=== PATIENT | female | born 1975 | race Caucasian/White ===

== ENCOUNTER 2016-04-22 05:50 | Emergency (ER) | payer OTHER ==
[~2016-04-22] VITALS: Ht 167.6 cm; Wt 63.5 kg
[~2016-04-22 05:50] MED LIST: [UNRECOGNIZED DRUG - CODE] PO
[2016-04-22 05:53] VITALS: BP 102/84
[2016-04-22] MEDS ORDERED: ATI.5 PO (06:01)
--- NOTE | 2016-04-22 06:06 | NUR ---
PT TAKEN TO BED 2
--- NOTE | 2016-04-22 06:11 | NUR ---
40Y F BIB SELF C/O SHARP AB PAIN X 2 DAYS WITH DIARRHEA AND VOMITING. PT STATES SHE ALSO HAS A HEADACHE 6/10 PAIN .; SKIN IS PINK/WARM/DRY; AAOX4 WITH EVEN AND STEADY GAIT; LUNGS CLEAR BL; HR EVEN AND REGULAR; PT DENIES ANY FEVER, CP, SOB, OR COUGH AT THIS TIME; PATIENT STATES PAIN OF 6/10 AT THIS TIME; VSS; PATIENT POSITIONED FOR COMFORT; HOB ELEVATED; BEDRAILS UP X2; BED DOWN. ER MD MADE AWARE OF PT STATUS. HX: HYPOTHYROIDISM ALLERGIC - PCN AND SULFA
[2016-04-22] MEDS ORDERED: KETOROLAC 30 MG/ML VIAL IVP ONE (06:40)
[2016-04-22] MEDS ORDERED: NACL 0.9% 1,000 ML IV ONE ×2 (06:40→08:00)
[2016-04-22 06:54] LABS: BASOPHILS # (AUTO) 0.2 K/uL (0.00-0.22); BASOPHILS % (AUTO) 2.9 % (0.0-2.0); EOSINOPHILS # (AUTO) 0.1 K/uL (0-0.4); EOSINOPHILS % (AUTO) 1.7 % (0.0-4.0); HEMATOCRIT 39.8 % (36-48); HEMOGLOBIN 13.5 g/dL (12.0-16.0); LYMPHOCYTES # (AUTO) 1.6 K/uL (2.5-16.5); LYMPHOCYTES % (AUTO) 23.7 % (20.5-51.1); MEAN CORPUSCULAR HEMOGLOBIN 33 pg (27-31); MEAN CORPUSCULAR HGB CONC 34 g/dL (33-37); MEAN CORPUSCULAR VOLUME 96 fL (80-94); MONOCYTES # (AUTO) 0.6 K/uL (0.8-1.0); MONOCYTES % (AUTO) 8.7 % (1.7-9.3); NEUTROPHILS # (AUTO) 4.1 K/uL (1.8-7.7); PLATELET COUNT (AUTO) 282 K/uL (140-450); RED BLOOD CELL COUNT(AUTO) 4.15 MIL/uL (4.20-5.40); WHITE BLOOD COUNT (AUTO) 6.6 K/uL (4.8-10.8)
[2016-04-22 06:57] LABS: APPEARANCE,URINE CLOUDY (CLEAR); BILIRUBIN,URINE NEGATIVE (NEGATIVE); BLOOD, URINE 2+ (NEGATIVE); COLOR,URINE YELLOW (YELLOW); LEUKOCYTE ESTERASE ,URINE NEGATIVE (NEGATIVE); NITRITE, URINE NEGATIVE (NEGATIVE); PROTEIN,URINE 2+ (NEGATIVE); UGLUCOSE NEGATIVE (NEGATIVE); UROBILINOGEN,URINE 0.2 EU/dL (0.2 - 1)
--- NOTE | 2016-04-22 07:05 | NUR ---
Dr. Davenport evaluating patient at bedside.
[2016-04-22 07:06] LABS: ANION GAP 11.2 (8-16); CALCIUM 7.7 mg/dL (8.5-10.1); CARBON DIOXIDE 27.2 mmol/L (21-32); CREATININE 0.7 mg/dL (0.6-1.3); POTASSIUM 4.4 mmol/L (3.5-5.1)
--- NOTE | 2016-04-22 07:11 | NUR ---
Pt report given to DANIKA GUEVAAR. Transfer of care at this time.
--- NOTE | 2016-04-22 07:11 | NUR ---
NACL 0.9% 1000ML START 644 RIGHT AC RATE: 999ML/HR END 710; 100ML INFUSED, 900ML REMAINING TO CONTINUE INFUSE WITH DAY SHIFT; REPORT WAS GIVEN TO DANIKA RN, TRANSFER OF CARE GIVEN TO DANIKA RN ; 710
[2016-04-22 07:12] LABS: ALBUMIN 3.4 g/dL (3.4-5.0); TOTAL BILIRUBIN 0.6 mg/dL (0.0-1.0); TOTAL PROTEIN, SERUM 6.4 g/dL (6.4-8.2)
--- NOTE | 2016-04-22 07:17 | NUR ---
RECEIVED REPORT AT PT BEDSIDE. PT RESTING IN BED, IV SITE PATENT AND INTACT. PT WAS SEEN BY . C/O ABDOMINAL DISCOMFORT. MD NOTIFIED.
[2016-04-22 07:28] LABS: BACTERIA,URINE 1+ /HPF (None Seen); MUCUS,URINE 2+ /LPF (None Seen); WBC,URINE 0-5 /HPF (0-5)
[2016-04-22] MEDS ORDERED: ONDANSETRON 4 MG/2 ML VIAL IVP ONE (07:45)
[2016-04-22] MEDS ORDERED: SULFAMETH/TRIMETH DS 800/160MG 1 TAB PO ONE (08:50)
[2016-04-22 08:59] LABS: FREE T4 (FREE THYROXINE) 0.83 ng/dL (0.76-1.46); THYROID STIMULATING HORMONE 9.64 uIU/mL (0.34-3.76)
[2016-04-22 11:48] VITALS: BP 102/84
--- NOTE | 2016-04-22 11:48 | NUR ---
Patient discharged with v/s stable. Written and verbal after care instructions given and explained. Patient alert, oriented and verbalized understanding of instructions. Ambulatory with steady gait. All questions addressed prior to discharge. ID band removed. Patient advised to follow up with PMD. Rx of CIPRO, ZOFRAN given. Patient educated on indication of medication including possible reaction and side effects. Opportunity to ask questions provided and answered.
== END 2016-04-22 11:48 | disposition home or self-care (01) ==
LOC: MED 05:50
PROC: 3E033GC Introduction of Other Therapeutic Substance into Peripheral Vein, Percutaneous Approach (ICD-10-PCS; principal; 2016-04-22)
DX: E86.0 Dehydration (principal); R31.9 Hematuria, unspecified; Z88.0 Allergy status to penicillin; Z88.2 Allergy status to sulfonamides; Z32.02 Encounter for pregnancy test, result negative
CPT/HCPCS: 36415; 80053; 81001; 81025; 82150; 83690; 84439; 84443; 85025; 87086; 87804; 96361; 96374; 96375; 99284; J1885; J2405; J7030

== ENCOUNTER 2019-08-07 06:53 | Day surgery (SDC) | payer OTHER, SELFPAY ==
[~2019-08-07] VITALS: Ht 165.1 cm; Wt 74.8 kg
[~2019-08-07 06:53] MED LIST changes: +ATI.5 PO
[2019-08-07] MEDS ORDERED: fentaNYL citrate 0.05 MG/ML VIAL ONE (08:55)
[2019-08-07] MEDS ORDERED: LIDOCAINE VISCOUS 2% 20 ML UDC ONE (08:56)
[2019-08-07] MEDS ORDERED: MIDAZOLAM 2 MG/2 ML VIAL ONE (08:56)
[2019-08-07] MEDS ORDERED: MIDAZOLAM 2 MG/2 ML VIAL IVP ONE (09:50)
[2019-08-07] MEDS ORDERED: fentaNYL citrate 0.05 MG/ML VIAL IVP ONE (09:50)
== END 2019-08-07 10:10 | disposition home or self-care (01) ==
LOC: MDS 06:53 → MMU 06:54 → MDS 10:10
PROVIDERS: ATTEND Internal Medicine Gastroenterology
DX: R10.13 Epigastric pain (principal); K21.0 Gastro-esophageal reflux disease with esophagitis; R13.10 Dysphagia, unspecified; K59.00 Constipation, unspecified; Z87.891 Personal history of nicotine dependence; Z88.0 Allergy status to penicillin; Z88.1 Allergy status to other antibiotic agents; Z79.899 Other long term (current) drug therapy; Z11.59 Encounter for screening for other viral diseases
CPT/HCPCS: 43239; 81025; 88305; 88312; 88313; J2250; J3010; U0003